=== PATIENT | male | born 1940 | race Two or more races ===

== ENCOUNTER 2024-02-02 19:15 | Inpatient (IN) | payer BC ==
[~2024-02-02] VITALS: Ht 162.6 cm; Wt 74.4 kg
[2024-02-02] MEDS: IV NORMAL SALINE 1000 ML BAG IV ONE (19:30)
[2024-02-02 19:55] LABS: BASOPHILS % (AUTO) 0.3 % (0.0-2.0); EOSINOPHILS # (AUTO) 0.2 K/uL (0.0-0.7); EOSINOPHILS % (AUTO) 1.3 % (0.0-7.0); HEMATOCRIT 26.2 % (36.7-47.1); HEMOGLOBIN 8.6 g/dL (12.5-16.3); LYMPHOCYTES # (AUTO) 2.5 K/uL (0.8-4.8); LYMPHOCYTES % (AUTO) 19.2 % (20.5-51.5); MEAN CORPUSCULAR HEMOGLOBIN 29.8 uug (23.8-33.4); MEAN CORPUSCULAR HGB CONC 33 g/dL (32.5-36.3); MEAN CORPUSCULAR VOLUME 90.5 fL (73.0-96.2); MONOCYTES # (AUTO) 1.3 K/uL (0.1-1.30); MONOCYTES % (AUTO) 10.2 % (0.0-11.0); NEUTROPHILS # (AUTO) 8.9 K/uL (1.8-8.9); PLATELET COUNT (AUTO) 241 K/uL (152-348); RED BLOOD CELL COUNT(AUTO) 2.89 MIL/uL (4.06-5.63); RED CELL DISTRIBUTION WIDTH 15.7 % (12.1-16.2); WHITE BLOOD COUNT (AUTO) 12.8 K/uL (3.6-10.2)
[2024-02-02 19:57] LABS: DIFFERENTIAL COMMENT 1
[2024-02-02 20:02] LABS: CALCIUM 9.2 mg/dL (8.5-10.1); CARBON DIOXIDE 18 mmol/L (21-32); CHLORIDE 107 mmol/L (98-107); CREATININE 3.7 mg/dL (0.6-1.3); GLUCOSE 271 mg/dL (74-106); POTASSIUM 5.4 mmol/L (3.5-5.1); SODIUM SERUM 141 mmol/L (136-145)
[2024-02-02 20:08] LABS: UREA NITROGEN, BLOOD 91 mg/dL (7-18)
[2024-02-02 20:16] LABS: ALANINE AMINOTRANSFERASE 9 U/L (16-63); ALBUMIN 3.3 g/dL (3.4-5.0); ALKALINE PHOSPHATASE 115 U/L (50-136); ASPARTATE AMINOTRANSFERASE < 5 U/L (15-37); BILIRUBIN,DIRECT 0.1 mg/dL (0.0-0.2); BILIRUBIN,TOTAL 0.4 mg/dL (0.2-1.0); LIPASE 57 U/L (16-77); TOTAL PROTEIN, SERUM 7.4 g/dL (6.4-8.2)
[2024-02-02 21:19] LABS: *OCCULT BLOOD STOOL POSITIVE (NEGATIVE)
[2024-02-02] MEDS ORDERED: PANTOPRAZOLE SODIUM 40 MG VIAL ONE ×2 (21:49→22:11)
[2024-02-02] MEDS: PANTOPRAZOLE SODIUM IV 80 MG in IV DEXTROSE 5% 500 ML IV ONE ×2 (22:00→22:06)
[2024-02-03] MEDS ORDERED: MAGNESIUM HYDROXIDE 30 ML LIQUID UDC PO PRN (00:45)
[2024-02-03] MEDS ORDERED: ONDANSETRON 4 MG/2 ML VIAL IV PRN (00:45)
[2024-02-03] MEDS ORDERED: REMEDY ESSENTIAL ZINC PASTE 113 GM TP PRN (00:45)
[2024-02-03 01:40] VITALS: BP 109/58; TEMP 98.2; O2SAT 99
[2024-02-03] MEDS: DEXTROSE 50% 50 ML DISP.SYRIN IV ONE (02:02)
[2024-02-03] MEDS: INSULIN REGULAR, HUMAN 300 UNIT/3 ML VIAL IV ONE (02:03)
[2024-02-03] MEDS: DEXTROSE 50% 50 ML DISP.SYRIN ONE (02:04)
[2024-02-03] MEDS: IV NS 1000 ML 1,000 ML IV PRN (02:08)
[2024-02-03 06:43] VITALS: BP 128/49; TEMP 97.9; O2SAT 99
[2024-02-03 07:42] LABS: BASOPHILS % (AUTO) 0.2 % (0.0-2.0); EOSINOPHILS # (AUTO) 0.4 K/uL (0.0-0.7); EOSINOPHILS % (AUTO) 3.8 % (0.0-7.0); HEMATOCRIT 22.7 % (36.7-47.1); LYMPHOCYTES # (AUTO) 3.3 K/uL (0.8-4.8); LYMPHOCYTES % (AUTO) 31.6 % (20.5-51.5); MEAN CORPUSCULAR HEMOGLOBIN 30.5 uug (23.8-33.4); MEAN CORPUSCULAR HGB CONC 33 g/dL (32.5-36.3); MEAN CORPUSCULAR VOLUME 91.6 fL (73.0-96.2); MONOCYTES # (AUTO) 1.1 K/uL (0.1-1.30); MONOCYTES % (AUTO) 10.9 % (0.0-11.0); NEUTROPHILS # (AUTO) 5.6 K/uL (1.8-8.9); NEUTROPHILS % (AUTO) 53.5 % (38.5-71.5); PLATELET COUNT (AUTO) 199 K/uL (152-348); RED CELL DISTRIBUTION WIDTH 15.9 % (12.1-16.2); WHITE BLOOD COUNT (AUTO) 10.4 K/uL (3.6-10.2)
[2024-02-03 07:52] LABS: DIFFERENTIAL COMMENT 1; RED BLOOD CELL COUNT(AUTO) 2.48 MIL/uL (4.06-5.63)
[2024-02-03 07:59] LABS: HEMOGLOBIN 7.6 g/dL (12.5-16.3)
[2024-02-03 08:00] LABS: ALANINE AMINOTRANSFERASE 11 U/L (16-63); ALBUMIN 2.8 g/dL (3.4-5.0); ALKALINE PHOSPHATASE 98 U/L (50-136); BILIRUBIN,DIRECT 0.1 mg/dL (0.0-0.2); BILIRUBIN,TOTAL 0.3 mg/dL (0.2-1.0); CALCIUM 8.7 mg/dL (8.5-10.1); CARBON DIOXIDE 19 mmol/L (21-32); CHLORIDE 111 mmol/L (98-107); CREATININE 3.1 mg/dL (0.6-1.3); GLUCOSE 189 mg/dL (74-106); MAGNESIUM 1.4 mg/dL (1.8-2.4); PHOSPHOROUS 3.7 mg/dL (2.5-4.9); POTASSIUM 4.3 mmol/L (3.5-5.1); SODIUM SERUM 142 mmol/L (136-145); TOTAL PROTEIN, SERUM 6.3 g/dL (6.4-8.2)
[2024-02-03 08:07] LABS: ASPARTATE AMINOTRANSFERASE < 5 U/L (15-37); UREA NITROGEN, BLOOD 89 mg/dL (7-18)
[2024-02-03 08:12] LABS: THYROID STIMULATING HORMONE 1.986 mIU/mL (0.358-3.740)
[2024-02-03] MEDS: PANTOPRAZOLE SODIUM 40 MG VIAL IV SCH (09:30)
[2024-02-03 12:00] VITALS: BP 155/41; TEMP 98.4; O2SAT 100
[2024-02-03 12:46] LABS: *BILIRUBIN,URIN NEGATIVE (NEGATIVE); *BLOOD, URINE NEGATIVE (NEGATIVE); *CLARITY,URINE CLEAR (CLEAR); *COLOR,URINE YELLOW (YELLOW); *KETONES,URINE NEGATIVE (NEGATIVE); *PROTEIN,URINE NEGATIVE (NEGATIVE); *UROBILINOGEN,URINE 0.2 E.U./dl (NORMAL); LEUKOCYTE ESTERASE ,URINE NEGATIVE (NEGATIVE); NITRITE, URINE NEGATIVE (NEGATIVE); PH,URINE 5.5 (5.0-8.0); UGLUCOSE NEGATIVE (NEGATIVE)
[2024-02-03] MEDS ORDERED: FURO20TA4 PO (15:00)
[2024-02-03] MEDS ORDERED: METO-357 PO (15:00)
[2024-02-03] MEDS ORDERED: LISI-782 PO (15:00)
[2024-02-03] MEDS ORDERED: LINA5TAB PO (15:00)
[2024-02-03] MEDS ORDERED: APIX5TAB4 PO (15:00)
[2024-02-03] MEDS ORDERED: GLIM2TAB31 PO (15:00)
[2024-02-03] MEDS ORDERED: ISOS30TA86 PO (15:00)
[2024-02-03] MEDS ORDERED: ATOR40TA PO (15:02)
[2024-02-03] MEDS ORDERED: AMLO-212 PO (15:05)
[2024-02-03] MEDS ORDERED: OMEP40CA21 PO (15:05)
[2024-02-03] MEDS ORDERED: ICOS1CAP PO (15:05)
[2024-02-03] MEDS ORDERED: INSU100I14 SQ (15:08)
[2024-02-03] MEDS ORDERED: INSU300I SQ (15:08)
[2024-02-03 16:00] VITALS: BP 95/59; TEMP 97.6; O2SAT 97
[2024-02-03] MEDS ORDERED: PROPOFOL 200 MG/20 ML BOTTLE ONE (16:55)
[2024-02-03 20:25] VITALS: BP 123/82; TEMP 97.6; O2SAT 99
[2024-02-03] MEDS ORDERED: DEXTROSE 50% 50 ML DISP.SYRIN IV PRN (20:30)
[2024-02-03] MEDS: BLOOD SUGAR DIAGNOSTIC 1 EACH STRIP VI SCH (21:23)
[2024-02-03] MEDS: INSULIN REGULAR, HUMAN 300 UNIT/3 ML VIAL SQ PRN (21:25)
[2024-02-04] VITALS (7 sets, daily range): BP systolic 101–117; BP diastolic 36–54; TEMP 97.7–98.6; O2SAT 98
[2024-02-04] MEDS: ISOSORBIDE MONONITRATE 30 MG TAB.SR.24H PO SCH (09:00)
[2024-02-04] MEDS: LINAGLIPTIN 5 MG TABLET PO SCH (09:00)
[2024-02-04 10:09] LABS: BASOPHILS % (AUTO) 0.4 % (0.0-2.0); DIFFERENTIAL COMMENT 0; EOSINOPHILS # (AUTO) 0.5 K/uL (0.0-0.7); EOSINOPHILS % (AUTO) 5.9 % (0.0-7.0); HEMATOCRIT 21.6 % (36.7-47.1); LYMPHOCYTES # (AUTO) 2.4 K/uL (0.8-4.8); LYMPHOCYTES % (AUTO) 29.9 % (20.5-51.5); MEAN CORPUSCULAR HEMOGLOBIN 30.1 uug (23.8-33.4); MEAN CORPUSCULAR HGB CONC 33 g/dL (32.5-36.3); MONOCYTES # (AUTO) 0.9 K/uL (0.1-1.30); MONOCYTES % (AUTO) 11.2 % (0.0-11.0); NEUTROPHILS # (AUTO) 4.3 K/uL (1.8-8.9); NEUTROPHILS % (AUTO) 52.6 % (38.5-71.5); PLATELET COUNT (AUTO) 219 K/uL (152-348); RED CELL DISTRIBUTION WIDTH 15.8 % (12.1-16.2); WHITE BLOOD COUNT (AUTO) 8.2 K/uL (3.6-10.2)
[2024-02-04 11:27] LABS: SODIUM SERUM 145 mmol/L (136-145)
[2024-02-04 11:28] LABS: CALCIUM 8.8 mg/dL (8.5-10.1); CARBON DIOXIDE 21 mmol/L (21-32); CHLORIDE 115 mmol/L (98-107); CREATININE 2.2 mg/dL (0.6-1.3); GLUCOSE 138 mg/dL (74-106); MAGNESIUM 1.5 mg/dL (1.8-2.4); PHOSPHOROUS 3.8 mg/dL (2.5-4.9); POTASSIUM 4.5 mmol/L (3.5-5.1); UREA NITROGEN, BLOOD 63 mg/dL (7-18)
[2024-02-04 12:14] LABS: RED BLOOD CELL COUNT(AUTO) 2.38 MIL/uL (4.06-5.63)
[2024-02-04 12:15] LABS: HEMOGLOBIN 7.2 g/dL (12.5-16.3)
[2024-02-04] MEDS: SOD FERRIC GLUC COMPLX/SUCROSE 125 MG in IV NORMAL SALINE 100 ML IV SCH (14:10)
[2024-02-04 16:58] LABS: HEMATOCRIT 20.5 % (36.7-47.1); HEMOGLOBIN 6.5 g/dL (12.5-16.3)
[2024-02-04] MEDS: ATORVASTATIN 40 MG TABLET PO SCH (20:38)
[2024-02-04] MEDS ORDERED: INSULIN GLARGINE,HUM 300 UNITS/3 ML CARTRIDGE SQ SCH (21:00)
[2024-02-04] MEDS: INSULIN GLARGINE,HUM 300 UNITS/3 ML CARTRIDGE SQ SCH (21:20)
[2024-02-05 06:02] VITALS: BP 110/44; TEMP 97.9; O2SAT 97
[2024-02-05 07:07] LABS: CALCIUM 8.6 mg/dL (8.5-10.1); CARBON DIOXIDE 21 mmol/L (21-32); CHLORIDE 115 mmol/L (98-107); CREATININE 1.9 mg/dL (0.6-1.3); GLUCOSE 131 mg/dL (74-106); MAGNESIUM 1.3 mg/dL (1.8-2.4); PHOSPHOROUS 3.6 mg/dL (2.5-4.9); POTASSIUM 4.4 mmol/L (3.5-5.1); SODIUM SERUM 145 mmol/L (136-145); UREA NITROGEN, BLOOD 41 mg/dL (7-18)
[2024-02-05 07:37] LABS: BASOPHILS % (AUTO) 0.3 % (0.0-2.0); EOSINOPHILS # (AUTO) 0.5 K/uL (0.0-0.7); EOSINOPHILS % (AUTO) 5.7 % (0.0-7.0); HEMATOCRIT 23.1 % (36.7-47.1); HEMOGLOBIN 7.7 g/dL (12.5-16.3); LYMPHOCYTES # (AUTO) 2.7 K/uL (0.8-4.8); LYMPHOCYTES % (AUTO) 32.3 % (20.5-51.5); MEAN CORPUSCULAR HGB CONC 33 g/dL (32.5-36.3); MEAN CORPUSCULAR VOLUME 89.9 fL (73.0-96.2); MONOCYTES % (AUTO) 11.6 % (0.0-11.0); NEUTROPHILS # (AUTO) 4.2 K/uL (1.8-8.9); NEUTROPHILS % (AUTO) 50.1 % (38.5-71.5); PLATELET COUNT (AUTO) 188 K/uL (152-348); RED BLOOD CELL COUNT(AUTO) 2.57 MIL/uL (4.06-5.63); RED CELL DISTRIBUTION WIDTH 18.5 % (12.1-16.2); WHITE BLOOD COUNT (AUTO) 8.3 K/uL (3.6-10.2)
[2024-02-05 07:49] LABS: DIFFERENTIAL COMMENT 1
[2024-02-05] MEDS: MAGNESIUM SULFATE/D5W 100 ML IV SCH (09:22)
[2024-02-05 12:10] VITALS: BP 124/61; TEMP 97.7; O2SAT 100
[2024-02-05] MEDS: HYDROCODONE/APAP 5-325MG TABLET PO PRN (13:47)
== END 2024-02-05 15:20 | disposition home or self-care (01) | DRG 377 ==
LOC: ER 19:40 → MEDSURG3 02-03 00:48
PROVIDERS: ADMIT Nurse Practitioner Family; ATTEND Nurse Practitioner Family
PROC: 0DB98ZX Excision of Duodenum, Via Natural or Artificial Opening Endoscopic, Diagnostic (ICD-10-PCS; principal; 2024-02-03)
PROC: 0DB68ZX Excision of Stomach, Via Natural or Artificial Opening Endoscopic, Diagnostic (ICD-10-PCS; 2024-02-03)
PROC: 30233N1 Transfusion of Nonautologous Red Blood Cells into Peripheral Vein, Percutaneous Approach (ICD-10-PCS; 2024-02-04)
DX: K29.71 Gastritis, unspecified, with bleeding (principal); N17.0 Acute kidney failure with tubular necrosis; D62 Acute posthemorrhagic anemia; E44.0 Moderate protein-calorie malnutrition; K31.89 Other diseases of stomach and duodenum; E88.09 Other disorders of plasma-protein metabolism, not elsewhere classified; Z68.28 Body mass index [BMI] 28.0-28.9, adult; E78.5 Hyperlipidemia, unspecified; Z95.810 Presence of automatic (implantable) cardiac defibrillator; I25.10 Atherosclerotic heart disease of native coronary artery without angina pectoris; I25.2 Old myocardial infarction; I48.91 Unspecified atrial fibrillation; Z79.01 Long term (current) use of anticoagulants; E87.5 Hyperkalemia; D72.829 Elevated white blood cell count, unspecified; E11.22 Type 2 diabetes mellitus with diabetic chronic kidney disease; I12.9 Hypertensive chronic kidney disease with stage 1 through stage 4 chronic kidney disease, or unspecified chronic kidney disease; Z87.891 Personal history of nicotine dependence; Z79.4 Long term (current) use of insulin; N18.9 Chronic kidney disease, unspecified
CPT/HCPCS: 36415; 43235; 71045; 76770; 82378; 83605; 83690; 83735; 84100; 84443; 84484; 85018; 85025; 85730; 86850; 86900; 86901; 86920; 93005; A4606; A4663; G0378; J1815; J2470; J2916; J3475; J3490; J7040; J7060; P9016